=== PATIENT | female | born 1970 | race Caucasian/White ===

== ENCOUNTER 2022-07-07 23:58 | Emergency (ER) | payer OTHER ==
[~2022-07-07] VITALS: Ht 180.3 cm; Wt 79.4 kg
[~2022-07-07 23:58] MED LIST: NO REPORTED MEDS
[2022-07-08] MEDS ORDERED: HYDR-4209 PO (01:41)
--- NOTE | 2022-07-08 01:55 | NUR ---
Patient discharged to home in stable condition. Written and verbal after care instructions given. Patient verbalizes understanding of instruction.
[2022-07-08 03:08] VITALS: BP 103/65
== END 2022-07-08 03:08 | disposition home or self-care (01) ==
LOC: ER 07-08
DX: S52.531A Colles' fracture of right radius, initial encounter for closed fracture (principal); S52.611A Displaced fracture of right ulna styloid process, initial encounter for closed fracture; D64.9 Anemia, unspecified; Z88.2 Allergy status to sulfonamides; W10.9XXA Fall (on) (from) unspecified stairs and steps, initial encounter; Y93.89 Activity, other specified; Y92.89 Other specified places as the place of occurrence of the external cause; Y99.8 Other external cause status
CPT/HCPCS: 73110

== ENCOUNTER 2022-10-23 09:53 | Emergency (ER) | payer BC, OTHER ==
[~2022-10-23] VITALS: Ht 175.3 cm; Wt 81.6 kg
[~2022-10-23 09:53] MED LIST changes: +HYDR-4209 PO
[2022-10-23 10:09] VITALS: BP 108/50
--- NOTE | 2022-10-23 10:13 | NUR ---
Been having lip swelling x1mo got worse last night after applying blistex
[2022-10-23] MEDS ORDERED: MUPI15CR TP (10:22)
[2022-10-23] MEDS ORDERED: DIPH50CA4 PO (10:22)
[2022-10-23] MEDS ORDERED: PRED50TA PO (10:22)
--- NOTE | 2022-10-23 10:34 | NUR ---
Patient discharged to home in stable condition. Written and verbal after care instructions given. Patient verbalizes understanding of instruction.
== END 2022-10-23 10:34 | disposition home or self-care (01) ==
LOC: ER 09:57
DX: L01.00 Impetigo, unspecified (principal); R60.9 Edema, unspecified; T41.3X5A Adverse effect of local anesthetics, initial encounter; Z88.2 Allergy status to sulfonamides; Z79.899 Other long term (current) drug therapy; Y92.89 Other specified places as the place of occurrence of the external cause